=== PATIENT | male | born 1985 | race African-American/Black ===

== ENCOUNTER 2020-12-16 20:55 | Observation (INO) | payer OTHER ==
[2020-12-16] MEDS ORDERED: SODIUM CHLORIDE 0.9% 1,000 ML IV STA ×2 (21:12)
[2020-12-16] MEDS ORDERED: LORazepam 2 MG/ML INJ IV STA (21:13)
[2020-12-16] MEDS ORDERED: KETOROLAC 15 MG/ML 1 ML VIAL IVP STA (21:13)
[2020-12-16 21:36] LABS: Basophils % (A) 1 %; Eosinophils # (A) 0.1 k/uL (0-0.7); Eosinophils % (A) 2 %; HGB 12.9 gm/dL (13.0-17.5); Lymphocytes # (A) 1.5 k/uL (1.0-4.8); Lymphocytes % (A) 19 %; MCH 29.8 pg (25.0-35.0); MCV 87.6 fL (80.0-100.0); Mean Platelet Volume 6.5; Monocytes # (A) 0.7 k/uL (0-1.0); Monocytes % (A) 9 %; Neutrophils # (A) 5.3 k/uL (1.3-7.7); Neutrophils % (A) 68 %; Platelet Count 303 k/uL (150-450); Poikilocytosis Moderate; RBC 4.34 m/uL (4.30-5.90); RDW 14.5 % (11.5-15.5); WBC 7.8 k/uL (3.8-10.6)
[2020-12-16 21:50] LABS: ALT 54 U/L (4-49); AST 56 U/L (17-59); African American GFR (CKD) >90 (>60 ml/min/1.73 sqM); Albumin 4.4 g/dL (3.5-5.0); Alkaline Phosphatase 61 U/L (38-126); Anion Gap 7 mmol/L; Blood Urea Nitrogen 13 mg/dL (9-20); Calcium 9.2 mg/dL (8.4-10.2); Carbon Dioxide 26 mmol/L (22-30); Chloride 103 mmol/L (98-107); Glucose 99 mg/dL (74-99); Magnesium 2.1 mg/dL (1.6-2.3); Non-African American GFR(CKD) >90 (>60 ml/min/1.73 sqM); Potassium 3.9 mmol/L (3.5-5.1); Sodium 136 mmol/L (137-145); Total Bilirubin 0.6 mg/dL (0.2-1.3); Total Protein 6.8 g/dL (6.3-8.2)
[2020-12-16 21:58] LABS: INR 0.9 (<1.2); Partial Thromboplastin Time 23.1 sec (22.0-30.0); Prothrombin Time 10.2 sec (9.0-12.0)
--- NOTE | 2020-12-16 22:16 | XR ---
EXAMINATION TYPE: XR chest 2V DATE OF EXAM: 12/16/2020 COMPARISON: NONE HISTORY: Weakness TECHNIQUE: 2 views FINDINGS: Heart and mediastinum are normal. There is slight increased density at the inferior right p ulmonary hilum that could be some minimal adenopathy or infiltrate. Costophrenic angles are clear. Maximino ny thorax is intact. IMPRESSION: This is probably a small infiltrate or adenopathy at the inferior right pulmonary hilum. Normal heart.
--- NOTE | 2020-12-16 22:58 | ED ---
General Adult HPI - General Chief complaint: Recheck/Abnormal Lab/Rx Stated complaint: weakness Time Seen by Provider: 12/16/20 21:03 Source: EMS Mode of arrival: EMS Limitations: no limitations - History of Present Illness Initial comments: This 35-year-old male presents with a complaint of some lower sternal chest pain. He relates that he initially had this a couple weeks ago and was seen in the emergency department at that time. He had x-rays labs and an EKG and was eventually discharged. He was told that it could be related to anxiety or refl ux. He states that it occurred again today. He is currently residing at [facility]. He is there for alcohol and cocaine abuse. He has been there for approximately one week. He states that he was outside several times today. He had been outside for approximately 45 minutes prior to arrival and states that he started developing some lower sternal chest pain. He also had some lightheadedness some mild upper extremity paresthesias, and rapid breathing. He does have a history of anxiety as well. He denies any known history of cardiac disease. He has asthma but otherwise denies any pulmonary disease. He states that the chest pain is more pressure-like in his midsternal region without radiation. He has never had a stress test or heart catheterization. He denies any history of DVT or PE. - Related Data Home Medications Medication Instructions Recorded Confirmed Acetaminophen [Tylenol Arthritis] 650 mg PO Q4H PRN 12/16/20 12/16/20 Calcium/Magnesium 1 tab PO DIRECTED 12/16/20 12/16/20 Chlorpheniramine Maleate 4 mg PO Q4H PRN 12/16/20 12/16/20 [Chlor-Trimeton] Ibuprofen [Motrin] 600 mg PO Q6H PRN 12/16/20 12/16/20 Multivitamins, Thera [Multivitamin 1 tab PO DAILY 12/16/20 12/16/20 (formulary)] Omeprazole 20 mg PO BID 12/16/20 12/16/20 cloNIDine HCL [Catapres] 0.1 - 0.3 mg PO DAILY PRN 12/16/20 12/16/20 traZODone HCL 50 - 150 mg PO HS 12/16/20 12/16/20 Allergies Allergy/AdvReac Type Severity Reaction Status Date / Time No Known Allergies Allergy Verified 12/16/20 22:20 Review of Systems ROS Statement: Those systems with pertinent positive or pertinent negative responses have been documented in the HPI. ROS Other: All systems not noted in ROS Statement are negative. Past Medical History Past Medical History: Asthma, GERD/Reflux History of Any Multi-Drug Resistant Organisms: None Reported Past Surgical History: No Surgical Hx Reported Past Psychological History: Anxiety Smoking Status: Current every day smoker Past Alcohol Use History: Abuse, Daily, Heavy Past Drug Use History: Cocaine General Exam - General Exam Comments Initial Comments: GENERAL: The patient is well nourished and well hydrated. VITAL SIGNS: Heart rate, blood pressure, respiratory rate reviewed as recorded in nurse's notes. EYES: Pupils are round and reactive. Extraocular movements are intact. No conjunctival / lid redness or swelling. ENT: No external evidence of injury, swelling, or ecchymosis. Airway is patent. Throat is clear. NECK: Nontender. No swelling or evidence of injury. No subcutaneous emphysema. Trachea is midline. No thyroid mass. HEART: Regular rate and rhythm. Good peripheral pulses. LUNGS/CHEST: Breath sounds clear and equal bilaterally. No rales, rhonchi, or wheezes. No ecchymosis, subcutaneous emphysema, or tenderness. ABDOMEN: Abdomen soft without tenderness. No palpable masses or organomegaly. No peritoneal signs. No abdominal wall swelling or ecchymosis. EXTREMITIES: No extremity tenderness. Normal muscle tone and function. No thoracolumbar tenderness. NEUROLOGIC: Sensation is grossly intact. Cranial nerve exam reveals face is symmetrical, tongue is midline, speech is clear. SKIN: No abrasions or ecchymosis is noted. No induration or masses noted. PSYCHIATRIC: Alert and oriented. Appropriate behavior and judgment. Seems slightly anxious. Limitations: no limitations Course Vital Signs 12/16/20 21:00 Temperature 98.3 F Pulse Rate 90 Respiratory 18 Rate Blood Pressure 133/93 O2 Sat by Pulse 99 Oximetry Medical Decision Making - Medical Decision Making The patient was seen and examined. All diagnostics were reviewed. IV is es tablished is placed on the urban and regional planner. The EKG shows a normal sinus rhythm at a rate of 90. There is no acute ST-T wave changes noted. The LA intervals 144, QRS duration is 90, and the QTC intervals 462. The laboratory overall is unremarkable. He also receives some Nitropaste. He receives 1 mg of Ativan IV. He is sleeping and in no distress on recheck. The chest x-ray was read out as having either an infiltrate or adenopathy just superior to the right perihilar region. Overall, it is felt now for that he is having a pneumonia as he has no shortness of breath or cough or fevers. He is instructed that he likely will require a repeat chest x-ray in a couple of weeks to compare and should follow- up with his primary care in this regard. Is not felt as though he needs antibiotic treatment at this time. A covid test will be ordered as well and is currently pending. The patient is requesting admission to the hospital for further workup of his chest pain. It is felt as though this is reasonable to rule out any possibility of acute coronary syndrome. Case is discussed with LAWSON Gillespie and he is agreeable to admission under Dr. Otto. - Lab Data Result diagrams: 12/16/20 21:25 12/16/20 21:25 Lab Results 12/16/20 12/16/20 12/16/20 Range/Units 21:25 21:25 21:25 WBC 7.8 (3.8-10.6) k/uL RBC 4.34 (4.30-5.90) m/uL Hgb 12.9 L (13.0-17.5) gm/dL Hct 38.0 L (39.0-53.0) % MCV 87.6 (80.0-100.0) fL MCH 29.8 (25.0-35.0) pg MCHC 34.0 (31.0-37.0) g/dL RDW 14.5 (11.5-15.5) % Plt Count 303 (150-450) k/uL MPV 6.5 Neutrophils % 68 % Lymphocytes % 19 % Monocytes % 9 % Eosinophils % 2 % Basophils % 1 % Neutrophils # 5.3 (1.3-7.7) k/uL Lymphocytes # 1.5 (1.0-4.8) k/uL Monocytes # 0.7 (0-1.0) k/uL Eosinophils # 0.1 (0-0.7) k/uL Basophils # 0.0 (0-0.2) k/uL Poikilocytosis Moderate PT 10.2 (9.0-12.0) sec INR 0.9 (<1.2) APTT 23.1 (22.0-30.0) sec Sodium 136 L (137-145) mmol/L Potassium 3.9 (3.5-5.1) mmol/L Chloride 103 (98-107) mmol/L Carbon Dioxide 26 (22-30) mmol/L Anion Gap 7 mmol/L BUN 13 (9-20) mg/dL Creatinine 0.88 (0.66-1.25) mg/dL Est GFR (CKD-EPI)AfAm >90 (>60 ml/min/1.73 sqM) Est GFR (CKD-EPI)NonAf >90 (>60 ml/min/1.73 sqM) Glucose 99 (74-99) mg/dL Calcium 9.2 (8.4-10.2) mg/dL Magnesium 2.1 (1.6-2.3) mg/dL Total Bilirubin 0.6 (0.2-1.3) mg/dL AST 56 (17-59) U/L ALT 54 H (4-49) U/L Alkaline Phosphatase 61 (38-126) U/L Troponin I (0.000-0.034) ng/mL Total Protein 6.8 (6.3-8.2) g/dL Albumin 4.4 (3.5-5.0) g/dL 12/16/20 Range/Units 21:25 WBC (3.8-10.6) k/uL RBC (4.30-5.90) m/uL Hgb (13.0-17.5) gm/dL Hct (39.0-53.0) % MCV (80.0-100.0) fL MCH (25.0-35.0) pg MCHC (31.0-37.0) g/dL RDW (11.5-15.5) % Plt Count (150-450) k/uL MPV Neutrophils % % Lymphocytes % % Monocytes % % Eosinophils % % Basophils % % Neutrophils # (1.3-7.7) k/uL Lymphocytes # (1.0-4.8) k/uL Monocytes # (0-1.0) k/uL Eosinophils # (0-0.7) k/uL Basophils # (0-0.2) k/uL Poikilocytosis PT (9.0-12.0) sec INR (<1.2) APTT (22.0-30.0) sec Sodium (137-145) mmol/L Potassium (3.5-5.1) mmol/L Chloride (98-107) mmol/L Carbon Dioxide (22-30) mmol/L Anion Gap mmol/L BUN (9-20) mg/dL Creatinine (0.66-1.25) mg/dL Est GFR (CKD-EPI)AfAm (>60 ml/min/1.73 sqM) Est GFR (CKD-EPI)NonAf (>60 ml/min/1.73 sqM) Glucose (74-99) mg/dL Calcium (8.4-10.2) mg/dL Magnesium (1.6-2.3) mg/dL Total Bilirubin (0.2-1.3) mg/dL AST (17-59) U/L ALT (4-49) U/L Alkaline Phosphatase (38-126) U/L Troponin I <0.012 (0.000-0.034) ng/mL Total Protein (6.3-8.2) g/dL Albumin (3.5-5.0) g/dL Disposition Clinical Impression: Chest pain, Unstable angina, Anxiety, Alcohol abuse, Cocaine abuse Disposition: ADMITTED IP TO THIS HOSP Condition: Fair Is patient prescribed a controlled substance at d/c from ED?: No Referrals: Nonstaff,Physician [Primary Care Provider] - 1-2 days Time of Disposition: 22:57 Decision Date: 12/16/20 Decision Time: 22:57
[2020-12-16] MEDS ORDERED: ASPIRIN 81 MG PO STA (22:59)
[2020-12-16] MEDS ORDERED: NITROGLYCERIN OINT 1 INCH/GM PACKET TOPICAL STA (22:59)
[2020-12-16] MEDS ORDERED: cloNIDine HCL 0.1 MG TAB PO PRN (23:00)
[2020-12-16] MEDS ORDERED: CALCIUM PO SCH (23:00)
[2020-12-16] MEDS ORDERED: MAGNESIUM PO SCH (23:00)
[2020-12-16] MEDS ORDERED: CHLORPHENIRAMINE MALEATE 4 MG PO PRN (23:00)
[2020-12-17] MEDS: NITROGLYCERIN OINT 1 INCH/GM PACKET TOPICAL SCH ×2 (01:17→05:45)
[2020-12-17] MEDS: ACETAMINOPHEN TAB 325 MG TAB PO PRN (04:16)
--- NOTE | 2020-12-17 10:22 | P.CRDCN ---
History of Present Illness Consult date: 12/17/20 Requesting physician: Tae Otto Reason for Consult (text): chest pain Chief complaint: diaphoresis, dizziness, chest pressure History of present illness: This is a pleasant 35-year-old gentleman with a past history of cocaine and alcohol abuse, GERD, and asthma. He is currently at [facility] for treatment. He was apparently outside playing [employer] yesterday when he started sweating and started feeling dizzy and kind of faint so he went inside to sit in the air conditioning and got a glass of water and he began shaking. The nurse was called and he was given Ativan. Shortly after taking the Ativan with water he developed some squeezing in his chest. He has experienced this about a month ago and was seen at another hospital in the emergency department was told that it was anxiety and reflux and was discharged. He is unsure whether he has any family history of CAD. He denies history of hypertension, hyperlipidemia or diabetes. EKG on admission showed sinus mechanism with no evidence of ischemia. Laboratory values showed a hemoglobin of 12.9, sodium 136, BUN 13 and cr eatinine 0.88. Magnesium was normal at 2.1. Troponins have been negative 3. He's been started on aspirin and nitroglycerin ointment. He received IV fluids in the emergency department. Chest x-ray showed probable small infiltrate or adenopathy at the inferior right pulmonary home and outpatient follow-up was recommended. On examination patient is resting comfortably in bed. He denies current complaints however does have some mild left chest wall tenderness to palpation. Denies any shortness of breath, palpitations, denies any further dizziness, diaphoresis or tremor Past Medical History Past Medical History: Asthma, GERD/Reflux History of Any Multi-Drug Resistant Organisms: None Reported Past Surgical History: No Surgical Hx Reported Past Anesthesia/Blood Transfusion Reactions: No Reported Reaction Past Psychological History: Anxiety Smoking Status: Current every day smoker Past Alcohol Use History: Abuse, Daily, Heavy Additional Past Alcohol Use History / Comment(s): on and off drinker. Past Drug Use History: Cocaine Medications and Allergies Home Medications Medication Instructions Recorded Confirmed Type Acetaminophen [Tylenol Arthritis] 650 mg PO Q4H PRN 12/16/20 12/16/20 History Calcium/Magnesium 1 tab PO DIRECTED 12/16/20 12/16/20 History Chlorpheniramine Maleate 4 mg PO Q4H PRN 12/16/20 12/16/20 History [Chlor-Trimeton] Ibuprofen [Motrin] 600 mg PO Q6H PRN 12/16/20 12/16/20 History Multivitamins, Thera [Multivitamin 1 tab PO DAILY 12/16/20 12/16/20 History (formulary)] Omeprazole 20 mg PO BID 12/16/20 12/16/20 History traZODone HCL 50 - 150 mg PO HS 12/16/20 12/16/20 History Atorvastatin [Lipitor] 10 mg PO HS #30 tab 12/17/20 Rx Allergies Allergy/AdvReac Type Severity Reaction Status Date / Time No Known Allergies Allergy Verified 12/16/20 22:20 Physical Exam Vitals: Vital Signs Temp Pulse Pulse Resp BP BP Pulse Ox 12/17/20 02:00 97.6 F 84 16 124/80 100 12/16/20 23:29 97.6 F 81 18 123/75 98 12/16/20 23:17 97.6 F 85 16 128/88 100 12/16/20 21:00 98.3 F 90 18 133/93 99 Intake and Output 12/16/20 12/17/20 12/17/20 22:59 06:59 14:59 Other: # Voids 2 Weight 77.111 kg 77.111 kg PHYSICAL EXAMINATION: This is a 35-year-old gentleman in no apparent distress at the time of my examination. VITAL SIGNS: Blood pressure when 124/80, heart rate 84, respirations 16, temp 97.6F. Patient is 100 % on [place]. HEENT: Head is atraumatic, normocephalic. Pupils are equal, round. Sclerae anicteric. Conjunctivae are clear. Mucous membranes of the mouth are moist. Neck is supple. There is no elevated jugular venous pressure. No carotid bruit is heard. CHEST EXAMINATION: Clear to auscultation bilaterally. No wheezes rales or rhonchi. Respirations even and nonlabored. Left chest wall tenderness with palpation HEART EXAMINATION: Heart regular, positive S1 and S2. No S3. No S4. No clicks, rubs or murmurs. ABDOMEN: Soft, nontender. Bowel sounds are heard. No organomegaly noted. EXTREMITIES: 2+ peripheral pulses with no evidence of peripheral edema and no calf tenderness noted. NEUROLOGIC EXAMINATION: Patient is awake, alert and oriented x3. Results 12/16/20 21:25 12/16/20 21:25 Cardiac Enzymes 12/16/20 12/16/20 12/17/20 Range/Units 21:25 21:25 01:20 AST 56 (17-59) U/L Troponin I <0.012 <0.012 (0.000-0.034) ng/mL 12/17/20 Range/Units 04:17 AST (17-59) U/L Troponin I <0.012 (0.000-0.034) ng/mL Coagulation 12/16/20 Range/Units 21: PT 10.2 (9.0-12.0) sec APTT 23.1 (22.0-30.0) sec CBC 12/16/20 Range/Units 21:25 WBC 7.8 (3.8-10.6) k/uL RBC 4.34 (4.30-5.90) m/uL Hgb 12.9 L (13.0-17.5) gm/dL Hct 38.0 L (39.0-53.0) % Plt Count 303 (150-450) k/uL Comprehensive Metabolic Panel 12/16/20 Range/Units 21:25 Sodium 136 L (137-145) mmol/L Potassium 3.9 (3.5-5.1) mmol/L Chloride 103 (98-107) mmol/L Carbon Dioxide 26 (22-30) mmol/L BUN 13 (9-20) mg/dL Creatinine 0.88 (0.66-1.25) mg/dL Glucose 99 (74-99) mg/dL Calcium 9.2 (8.4-10.2) mg/dL AST 56 (17-59) U/L ALT 54 H (4-49) U/L Alkaline Phosphatase 61 (38-126) U/L Total Protein 6.8 (6.3-8.2) g/dL Albumin 4.4 (3.5-5.0) g/dL Current Medications Generic Name Dose Route Start Last Admin Trade Name Freq PRN Reason Stop Dose Admin Acetaminophen 650 mg 12/16/20 23:00 12/17/20 04:16 Acetaminophen Tab 325 Mg Tab PO 650 mg Q4H PRN Administration Fever and/ or Pain Aspirin 325 mg 12/17/20 09:00 Aspirin 325 Mg Tab PO DAILY [facility] Clonidine 0.2 mg 12/16/20 23:00 Clonidine Hcl 0.1 Mg Tab PO DAILY PRN BP > 160/100 Enoxaparin Sodium 40 mg 12/17/20 09:00 Enoxaparin 40 Mg/0.4 Ml Syringe SQ DAILY [facility] Ibuprofen 600 mg 12/16/20 23:00 Ibuprofen 600 Mg Tab PO Q6H PRN Pain Multivitamins 1 each 12/17/20 09:00 Multivitamins, Thera 1 Each Tab PO DAILY [facility] Nitroglycerin 1 inch 12/17/20 00:00 12/17/20 05:45 Nitroglycerin Oint 1 Inch/Gm Packet TOPICAL Not Given Q6HR [facility] Pantoprazole Sodium 40 mg 12/17/20 07:30 Pantoprazole 40 Mg Tablet PO AC-BID [facility] Trazodone HCl 100 mg 12/17/20 21:00 Trazodone Hcl 100 Mg Tab PO HS [facility] Intake and Output 12/16/20 12/17/20 12/17/20 22:59 06:59 14:59 Other: # Voids 2 Weight 77.111 kg 77.111 kg 12/16/20 21:25 12/16/20 21:25 EKG Interpretations (text) Sinus rhythm Assessment and Plan Assessment: #1 symptoms of diaphoresis, dizziness, tremor and squeezing chest discomfort, an acute coronary event has been ruled out, EKG showed no evidence of ischemia and troponins have been negative 3 #2 alcohol abuse, currently in treatment #3 cocaine abuse, currently in treatment #4 smoking #5 asthma #6 GERD Plan: From cardiology's perspective we will obtain a 2-D echo with Doppler study to assess cardiac structure and function. We will discontinue nitroglycerin paste. We will plan to keep the patient and obtain a stress echo on Saturday. The above dictated assessment and findings were discussed with signing physician. The impression and plan of care have been directed as dictated. Keena Strong, Nurse Practitioner, acting as scribe for signing physician.
[2020-12-17] MEDS: PANTOPRAZOLE 40 MG TABLET PO SCH ×2 (10:43→17:36)
[2020-12-17] MEDS: ASPIRIN 325 MG TAB PO SCH (10:43)
[2020-12-17] MEDS: MULTIVITAMINS, THERA 1 EACH TAB PO SCH (10:43)
[2020-12-17] MEDS: ENOXAPARIN 40 MG/0.4 ML SYRINGE SQ SCH (10:43)
[2020-12-17 10:54] LABS: Chol/HDL Ratio 4.63; LDL Cholesterol,Calculated 138.6 mg/dL (0.0-131.0); VLDL Calculation 35.4 mg/dL (5.00-40.00)
--- NOTE | 2020-12-17 11:00 | ECHOF ---
Referral Reason:chest pain MEASUREMENTS -------- HEIGHT: 167.6 cm WEIGHT: 77.1 kg BP: 124/80 RVIDd: 3.1 cm (< 3.3) IVSd: 1.2 cm (0.6 - 1.1) LVIDd: 3.9 cm (3.9 - 5.3) LVPWd: 1.5 cm (0.6 - 1.1) IVSs: 1.6 cm LVIDs: 3.0 cm LVPWs: 1.8 cm LAESV Index (A-L): 24.60 ml/m Ao Diam: 3.5 cm (2.0 - 3.7) AV Cusp: 1.6 cm (1.5 - 2.6) MV EXCURSION: 20.378 mm (> 18.000) MV EF SLOPE: 115 mm/s (70 - 150) EPSS: 0.7 cm MV E Meño: 0.54 m/s MV DecT: 139 ms MV A Meño: 0.44 m/s MV E/A Ratio: 1.21 RAP: 5.00 mmHg RVSP: 19.17 mmHg FINDINGS -------- Sinus rhythm. This was a technically adequate study. The left ventricular size is normal. There is mild concentric left ventricular hypertrophy. Overa ll left ventricular systolic function is mildly impaired with, an EF between 45 - 50 %. The right ventricle is normal in size. Normal LA size by volume 22+/-6 ml/m2. Interatrial and interventricular septum intact. The aortic valve is trileaflet and appears structurally normal. There is no evidence of aortic regu rgitation. There is no evidence of aortic stenosis. There is trace mitral regurgitation. Mild tricuspid regurgitation present. There is no evidence of pulmonary hypertension. The right v entricular systolic pressure, as measured by Doppler, is 19.17mmHg. There is no pulmonic regurgitation present. The aortic root size is normal. IVC Not well visulized. There is no pericardial effusion. CONCLUSIONS -------- 1. The left ventricular size is normal. 2. There is mild concentric left ventricular hypertrophy. 3. Overall left ventricular systolic function is mildly impaired with, an EF between 45 - 50 %. 4. There is trace mitral regurgitation. 5. Mild tricuspid regurgitation present. BOILER OR ENGINE OPERATOR: Jenn Perez, [facility]
[2020-12-17] MEDS ORDERED: RX INFO: IV CONTRAST WAS GIVEN 1 EACH MISC MISCELLANE PRN (11:14)
--- NOTE | 2020-12-17 12:01 | P.CNPUL ---
History of Present Illness Consult date: 12/17/20 Requesting physician: Tae Otto Reason for consult: chest pain, abnormal CXR/CT Chief complaint: Abnormal chest x-ray and sharp chest pain. History of present illness: Pulmonary consult dated 12/17/2020. 35-year-old black male, who presents to the emergency department, for chest pain. The pain is primarily left-sided and sharp in nature. He states it occurs mostly with deep breathing. This been going on for at least a couple years and seems to be getting worse in the last couple weeks. He is currently being evaluated by the primary service for this pain. It doesn't sound pleuritic in nature in that it has been going on for such a long time. He currently resides at [facility]. He is here for alcohol and cocaine abuse. He denies a prior history of lung disease. Apparently there is a vague history of chronic bronchial asthma although he doesn't take anything for asthma. He also apparently has history of gastroesophageal reflux disease. He does smoke on a daily basis. He does or at least has a prior history of alcohol abuse, and cocaine abuse. There is no family history of any lung issues. The patient had a chest x-ray which suggested the possibility of right paratracheal and right hilar mass. We'll go ahead and order a computed tomography scan of the chest with contrast. Review of Systems REVIEW OF SYSTEMS: CONSTITUTIONAL: [Negative.] NEUROLOGIC: [ Negative.] HEENT: [ Negative.] CARDIAC: Sharp left-sided chest pain, worse on deep inspiration. PULMONARY: [Negative.] GI: [Negative.] : [Negative.] RHEUMATOLOGIC: [ Negative.] IMMUNOLOGIC: [ Negative.] ENDOCRINE: [Negative. ] DERMATOLOGIC: [Negative.] Past Medical History Past Medical History: Asthma, GERD/Reflux History of Any Multi-Drug Resistant Organisms: None Reported Past Surgical History: No Surgical Hx Reported Past Anesthesia/Blood Transfusion Reactions: No Reported Reaction Past Psychological History: Anxiety Smoking Status: Current every day smoker Past Alcohol Use History: Abuse, Daily, Heavy Additional Past Alcohol Use History / Comment(s): on and off drinker. Past Drug Use History: Cocaine Medications and Allergies Home Medications Medication Instructions Recorded Confirmed Type Acetaminophen [Tylenol Arthritis] 650 mg PO Q4H PRN 12/16/20 12/16/20 History Calcium/Magnesium 1 tab PO DIRECTED 12/16/20 12/16/20 History Chlorpheniramine Maleate 4 mg PO Q4H PRN 12/16/20 12/16/20 History [Chlor-Trimeton] Ibuprofen [Motrin] 600 mg PO Q6H PRN 12/16/20 12/16/20 History Multivitamins, Thera [Multivitamin 1 tab PO DAILY 12/16/20 12/16/20 History (formulary)] Omeprazole 20 mg PO BID 12/16/20 12/16/20 History cloNIDine HCL [Catapres] 0.1 - 0.3 mg PO DAILY PRN 12/16/20 12/16/20 History traZODone HCL 50 - 150 mg PO HS 12/16/20 12/16/20 History Allergies Allergy/AdvReac Type Severity Reaction Status Date / Time No Known Allergies Allergy Verified 12/16/20 22:20 Physical Exam Osteopathic Statement: *. No significant issues noted on an osteopathic structural exam other than those noted in the History and Physical/Consult. Vitals: Vital Signs Temp Pulse Pulse Resp BP BP Pulse Ox 12/17/20 08:00 16 12/17/20 07:00 97.4 F L 73 16 99/63 100 12/17/20 02:00 97.6 F 84 16 124/80 100 12/16/20 23:29 97.6 F 81 18 123/75 98 12/16/20 23:17 97.6 F 85 16 128/88 100 12/16/20 21:00 98.3 F 90 18 133/93 99 Intake and Output 12/16/20 12/17/20 12/17/20 22:59 06:59 14:59 Other: # Voids 2 Weight 77.111 kg 77.111 kg No acute distress, oriented 3. Room air saturation 100%. HEENT examination is grossly unremarkable. Mucous membranes are moist. No oral lesions. Neck supple. Full range of motion. No adenopathy thyromegaly or neck vein distention. Cardiovascular examination reveals regular rhythm rate. S1-S2 normal. No S3 or S4. No discernible murmur noted. Heart rate 73 bpm. Lungs reveal clear breath sounds. Breath sounds are equal bilaterally. No ad ventitious lung sounds including wheezes rhonchi or crackles. Abdomen soft bowel sounds are heard. No masses or tenderness. Extremities are intact. No cyanosis clubbing or edema. Skin is without rash or lesion. Neurologic examination is brief but nonfocal. Results - Laboratory Findings CBC and BMP: 12/16/20 21:25 12/16/20 21: PT/INR, D-dimer PT 10.2 sec (9.0-12.0) 12/16/20 21: INR 0.9 (<1.2) 12/16/20 21:25 Abnormal lab findings: Abnormal Labs 12/16/20 12/16/20 12/17/20 21:25 21:25 04:17 Hgb 12.9 L Hct 38.0 L Sodium 136 L ALT 54 H Triglycerides 177.0 H Cholesterol 222 H LDL Cholesterol, Calc 138.6 H - Diagnostic Findings Chest x-ray: image reviewed Assessment and Plan Assessment: Questionable right hilar mass, to be evaluated by CAT scan with contrast. History of chronic and ongoing tobacco use. History of cocaine abuse. Gastroesophageal reflux disease. History of chronic alcohol abuse. Plan: Plan dated 12/17/2020. Currently, the patient's blood work all looks pretty normal. He is mildly anemic with hemoglobin is 12.9 and hematocrit 38.0. PT, INR, and PTT, all normal. Sodium 136. The rest of his chemistries are pretty normal. His cholesterol is 222. Coronavirus testing is negative. Chest x-rays reviewed. There may be a right peritracheal or perihilar mass on the right side. A computed tomography scan of the chest was ordered. Additional recommendations and suggestions are forthcoming. If this abnormality is confirmed on computed tomography scan of the chest, the workup for this abnormality can't be done as an outpatient. Time with Patient: Greater than 30
--- NOTE | 2020-12-17 12:46 | P.DS ---
Providers Date of admission: 12/16/20 23:04 Attending physician: Tae Otto Consults: 12/16/20 23:02 Consult Physician Urgent Consulting Provider: Bella Torrez Consult Reason/Comments: cp Do you want consulting provider notified?: Yes 12/17/20 08:34 Consult Physician Urgent Consulting Provider: Oral Macedo Consult Reason/Comments: cp with small infiltrate or adenopathy of the right pulmonary hilum Do you want consulting provider notified?: Yes Primary care physician: Physician Nonstaff Hospital Course: As mentioned in HPI Patient Condition at Discharge: Fair Plan - Discharge Summary Discharge Rx Participant: Yes New Discharge Prescriptions: New Atorvastatin [Lipitor] 10 mg PO HS #30 tab Continue traZODone HCL 50 - 150 mg PO HS Chlorpheniramine Maleate [Chlor-Trimeton] 4 mg PO Q4H PRN PRN Reason: Allergy Symptoms Omeprazole 20 mg PO BID Multivitamins, Thera [Multivitamin (formulary)] 1 tab PO DAILY Ibuprofen [Motrin] 600 mg PO Q6H PRN PRN Reason: Pain Calcium/Magnesium 1 tab PO DIRECTED Acetaminophen [Tylenol Arthritis] 650 mg PO Q4H PRN PRN Reason: Fever And/ Or Pain Discontinued cloNIDine HCL [Catapres] 0.1 - 0.3 mg PO DAILY PRN PRN Reason: BP > 160/100 Discharge Medication List Acetaminophen [Tylenol Arthritis] 650 mg PO Q4H PRN 12/16/20 [History] Calcium/Magnesium 1 tab PO DIRECTED 12/16/20 [History] Chlorpheniramine Maleate [Chlor-Trimeton] 4 mg PO Q4H PRN 12/16/20 [History] Ibuprofen [Motrin] 600 mg PO Q6H PRN 12/16/20 [History] Multivitamins, Thera [Multivitamin (formulary)] 1 tab PO DAILY 12/16/20 [History] Omeprazole 20 mg PO BID 12/16/20 [History] traZODone HCL 50 - 150 mg PO HS 12/16/20 [History] Atorvastatin [Lipitor] 10 mg PO HS #30 tab 12/17/20 [Rx] Follow up Appointment(s)/Referral(s): Oral Macedo DO [Doctor of Osteopathic Medicine] - 1 Week Nonstaff,Physician [Primary Care Provider] - 3 Days
--- NOTE | 2020-12-17 12:46 | P.HPIM ---
History of Present Illness Patient is a 35-year-old the pleasant male came from substance abuse rehabilitation facility with complaints of left-sided and retrosternal chest pain increases with the deep breathing last for a few minutes no associated diaphoresis no shortness of breath lightheadedness associated with that patient denied any nausea patient chest pain is reproducible on the left side of the chest patient had EKG which showed sinus rhythm troponins are not elevated patient is a chest x-ray which showed a hilar mass for which pulmonology valid the patient's CT of the chest is being updated rule out PE as well as the CT of the chest there is no pneumonia on the x-ray CT of the chest will help is better characterize the mass if it turns out to be a mass further workup will be done as an outpatient. 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 Review of Systems REVIEW OF SYSTEMS: CONSTITUTIONAL: No fever, no malaise, no fatigue. HEENT: No recent visual problems or hearing problems. Denied any sore throat. CARDIOVASCULAR: No orthopnea, PND, no palpitations, no syncope. PULMONARY: No shortness of breath, no cough, no hemoptysis. GASTROINTESTINAL: No diarrhea, no nausea, no vomiting, no abdominal pain. NEUROLOGICAL: No headaches, no weakness, no numbness. HEMATOLOGICAL: Denies any bleeding or petechiae. GENITOURINARY: Denies any burning micturition, frequency, or urgency. MUSCULOSKELETAL/RHEUMATOLOGICAL: Denies any joint pain, swelling, or any muscle pain. ENDOCRINE: Denies any polyuria or polydipsia. The rest of the 14-point review of systems is negative. Past Medical History Past Medical History: Asthma, GERD/Reflux History of Any Multi-Drug Resistant Organisms: None Reported Past Surgical History: No Surgical Hx Reported Past Anesthesia/Blood Transfusion Reactions: No Reported Reaction Past Psychological History: Anxiety Smoking Status: Current every day smoker Past Alcohol Use History: Abuse, Daily, Heavy Additional Past Alcohol Use History / Comment(s): on and off drinker. Past Drug Use History: Cocaine Medications and Allergies Home Medications Medication Instructions Recorded Confirmed Type Acetaminophen [Tylenol Arthritis] 650 mg PO Q4H PRN 12/16/20 12/16/20 History Calcium/Magnesium 1 tab PO DIRECTED 12/16/20 12/16/20 History Chlorpheniramine Maleate 4 mg PO Q4H PRN 12/16/20 12/16/20 History [Chlor-Trimeton] Ibuprofen [Motrin] 600 mg PO Q6H PRN 12/16/20 12/16/20 History Multivitamins, Thera [Multivitamin 1 tab PO DAILY 12/16/20 12/16/20 History (formulary)] Omeprazole 20 mg PO BID 12/16/20 12/16/20 History traZODone HCL 50 - 150 mg PO HS 12/16/20 12/16/20 History Allergies Allergy/AdvReac Type Severity Reaction Status Date / Time No Known Allergies Allergy Verified 12/16/20 22:20 Physical Exam Vitals: Vital Signs Temp Pulse Pulse Resp BP BP Pulse Ox 12/17/20 08:00 16 12/17/20 07:00 97.4 F L 73 16 99/63 100 12/17/20 02:00 97.6 F 84 16 124/80 100 12/16/20 23:29 97.6 F 81 18 123/75 98 12/16/20 23:17 97.6 F 85 16 128/88 100 12/16/20 21:00 98.3 F 90 18 133/93 99 Intake and Output 12/16/20 12/17/20 12/17/20 22:59 06:59 14:59 Other: # Voids 2 Weight 77.111 kg 77.111 kg PHYSICAL EXAMINATION: GENERAL: The patient is alert and oriented x3, not in any acute distress. Well developed, well nourished. HEENT: Pupils are round and equally reacting to light. EOMI. No scleral icterus. No conjunctival pallor. Normocephalic, atraumatic. No pharyngeal erythema. No thyromegaly. CARDIOVASCULAR: S1 and S2 present. No murmurs, rubs, or gallops. Reproducible chest pain PULMONARY: Chest is clear to auscultation, no wheezing or crackles. ABDOMEN: Soft, nontender, nondistended, normoactive bowel sounds. No palpable organomegaly. MUSCULOSKELETAL: No joint swelling or deformity. EXTREMITIES: No cyanosis, clubbing, or pedal edema. NEUROLOGICAL: Gross neurological examination did not reveal any focal deficits. SKIN: No rashes. Results CBC & Chem 7: 12/16/20 21:25 12/16/20 21:25 Labs: Abnormal Lab Results - Last 24 Hours (Table) 12/16/20 12/16/20 12/17/20 Range/Units 21:25 21:25 04:17 Hgb 12.9 L (13.0-17.5) gm/dL Hct 38.0 L (39.0-53.0) % Sodium 136 L (137-145) mmol/L ALT 54 H (4-49) U/L Triglycerides 177.0 H (0.0-149.0) mg/dL Cholesterol 222 H (0-200) mg/dL LDL Cholesterol, Calc 138.6 H (0.0-131.0) mg/dL Thrombosis Risk Factor Assmnt - Choose All That Apply Any of the Below Risk Factors Present?: Yes Each Factor Represents 1 point: Obesity (BMI >25) Thrombosis Risk Factor Assessment Total Risk Factor Score: 1 Thrombosis Risk Factor Assessment Level: Low Risk Assessment and Plan Plan: -Chest pain rule out acute coronary syndromes patient had an echocardiogram which showed EF around 45-50% no wall motion abnormalities. Patient will be a valid by cardiology if cleared by cardiology patient will be discharged today decision regarding inpatient versus outpatient stress test as per cardiology for chest pain appears to be musculoskeletal patient is already on Motrin which she'll continue patient is also on Prilosec as an outpatient which I will continue -Alcohol abuse and cocaine abuse currently inpatient drug rehabilitation program -Nicotine abuse -Asthma without any acute exacerbation -Incidental finding of hilar prominence for which patient is undergoing a computed tomography scan and was evaluated by pulmonology further workup can be done as an outpatient we'll also rule out pulmonary embolism -Hyperlipidemia data counseling will be provided patient will be started on low- dose of statin
--- NOTE | 2020-12-17 13:40 | CT ---
EXAMINATION TYPE: CT chest w con DATE OF EXAM: 12/17/2020 COMPARISON: Chest x-ray from yesterday. HISTORY: Right Hilar Mass CT DLP: 502 mGycm. Automated Exposure Control for Dose Reduction was Utilized. TECHNIQUE: CT scan of the thorax is performed following with IV Contrast, patient injected with 100 ml mL of Isovue 300. FINDINGS: LUNGS: Tiny right pleural effusion. Patchy anterior right upper lung groundglass opacities and reticu lation. Tiny amount of fluid in the fissures bilaterally. Mild bibasilar linear scarring and/or atele ctasis. No pneumothorax seen bilaterally. MEDIASTINUM: There are enlarged bilateral hilar lymph nodes more prominent in the right hilum versus left. Borderline enlarged subcarinal and right tracheobronchial lymph nodes. Prominent but subcenti meter prevascular and AP window lymph nodes. No cardiomegaly or pericardial effusion is seen. 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 4 vessel origin aortic arch. OTHER: Focal moderate suspicious thickening of the distal esophagus reference axial image 46.. Correl ate clinically for possible distal esophagitis. IMPRESSION: 1. Patchy right upper lung groundglass opacities and reticulation anteriorly along with tiny right pl eural effusion and right greater than left hilar adenopathy. Suspect acute infectious process, correl ate clinically. Consider follow-up CT study to reassess right greater than left hilar adenopathy afte r treatment to exclude other etiologies. Other findings as noted above.
[2020-12-17] MEDS ORDERED: NICOTINE 7MG/24HR PATCH TRANSDERM SCH (15:00)
[2020-12-17] MEDS: NICOTINE 14MG/24HR PATCH TRANSDERM SCH (17:36)
[2020-12-17] MEDS: IBUPROFEN 600 MG TAB PO PRN (20:37)
[2020-12-17] MEDS: traZODone HCL 100 MG TAB PO SCH (20:38)
[2020-12-18] MEDS: ALPRAZolam 0.25 MG TAB PO PRN ×2 (01:14→17:35)
[2020-12-18] MEDS: ENOXAPARIN 40 MG/0.4 ML SYRINGE SQ SCH (08:22)
[2020-12-18] MEDS: PANTOPRAZOLE 40 MG TABLET PO SCH ×2 (08:22→17:26)
[2020-12-18] MEDS: MULTIVITAMINS, THERA 1 EACH TAB PO SCH (08:22)
[2020-12-18] MEDS: ASPIRIN 325 MG TAB PO SCH (08:22)
[2020-12-18] MEDS: NICOTINE 14MG/24HR PATCH TRANSDERM SCH (08:22)
--- NOTE | 2020-12-18 12:29 | PN ---
PROGRESS NOTE This is a 35-year-old gentleman who is going through alcohol and drug rehab at [facility] and was admitted to hospital with chest pain yesterday and had mild LV dysfunction on the echocardiogram. We kept him in to get a stress test on tomorrow. This morning he is doing well and is free of symptoms. On exam, comfortable at rest. Heart rate is 82 beats per minute. Blood pressure is respiratory is 18. Chest exam reveals good air entry bilaterally. Heart exam reveals first and second heart sounds. No gallop. No murmur. Abdomen is soft. Exam of extremities did not reveal any edema. Peripheral pulses are felt. An echocardiogram showed an ejection fraction of 45-[address] scan of the chest showed some patchy ground-glass opacities and pulmonary is on the case. ASSESSMENT: Precordial chest pain. Myocardial infarction ruled out. PLAN: Patient will undergo a stress echo tomorrow. If this is negative, he will be discharged home. If this is abnormal, we will consider further evaluation. MMODL / IJN: [id number] /
[2020-12-18] MEDS: IBUPROFEN 600 MG TAB PO PRN (12:34)
[2020-12-18] MEDS: AMOXIC-POT CLAV 875-125MG 1 EACH TAB PO SCH ×2 (13:13→21:50)
--- NOTE | 2020-12-18 13:28 | P.PN ---
Subjective Progress Note Date: 12/18/20 Principal diagnosis: Abnormal chest x-ray and CAT scan. Pulmonary consult dated 12/17/2020. 35-year-old black male, who presents to the emergency department, for chest pain. The pain is primarily left-sided and sharp in nature. He states it occurs mostly with deep breathing. This been going on for at least a couple years and seems to be getting worse in the last couple weeks. He is currently being evaluated by the primary service for this pain. It doesn't sound pleurit ic in nature in that it has been going on for such a long time. He currently resides at [facility]. He is here for alcohol and cocaine abuse. He denies a prior history of lung disease. Apparently there is a vague history of chronic bronchial asthma although he doesn't take anything for asthma. He also apparently has history of gastroesophageal reflux disease. He does smoke on a daily basis. He does or at least has a prior history of alcohol abuse, and cocaine abuse. There is no family history of any lung issues. The patient had a chest x-ray which suggested the possibility of right paratracheal and right hilar mass. We'll go ahead and order a computed brandy ography scan of the chest with contrast. Progress note dated 12/18/2020. The patient was seen yesterday in consultation for chest pain. The chest x-ray suggested a possible right perihilar abnormality. Computed tomography scan did show evidence of diffuse thoracic adenopathy, and a very minimal infiltrate in the right upper lobe. The patient was placed on oral antibiotic. The patient should follow with me post discharge. The patient will need a follow-up x-ray and/or scan, and should be evaluated for possible sarcoidosis. The lymph nodes could be reactive in nature, and a repeat computed tomography scan 6 or 8 weeks after the initial scan, would be beneficial. Clinically he is doing well without major complaints at this time. He was at the [facility], for alcohol and cocaine abuse. Objective - Vital Signs Vital signs: Vital Signs Temp 98.4 F 12/18/20 07:00 Pulse 82 12/18/20 07:00 Resp 16 12/18/20 08:00 BP 115/61 12/18/20 07:00 Pulse Ox 98 12/18/20 07:00 Intake & Output 05/12/18/20 12/18/20 18:59 06:59 18:59 Intake Total 200 450 400 Balance 200 450 400 Intake: Oral 200 450 400 Other: # Voids 2 3 - Exam No acute distress, oriented 3. Room air saturation 98%. HEENT examination is grossly unremarkable. Neck supple. Full range of motion. No adenopathy thyromegaly or neck vein distention. Cardiovascular examination reveals regular rhythm rate. S1-S2 normal. No S3 or S4. No discernible murmur noted. Heart rate 82 bpm. Lungs reveal clear breath sounds. Breath sounds are equal bilaterally. No adventitious lung sounds including wheezes rhonchi or crackles. Abdomen soft bowel sounds are heard. No masses or tenderness. Extremities are intact. No cyanosis clubbing or edema. Skin is without rash or lesion. Neurologic examination is brief but nonfocal. - Labs CBC & Chem 7: 12/16/20 21:25 12/16/20 21:25 Assessment and Plan Assessment: Questionable right hilar mass, to be evaluated by CAT scan with contrast. Computed tomography scan showed diffuse thoracic adenopathy, likely reactive, and a minimal infiltrate right upper lobe. History of chronic and ongoing tobacco use. History of cocaine abuse. Gastroesophageal reflux disease. History of chronic alcohol abuse. Plan: Plan dated 12/17/2020. Currently, the patient's blood work all looks pretty normal. He is mildly anemic with hemoglobin is 12.9 and hematocrit 38.0. PT, INR, and PTT, all normal. Sodium 136. The rest of his chemistries are pretty normal. His cholesterol is 222. Coronavirus testing is negative. Chest x-rays reviewed. There may be a right peritracheal or perihilar mass on the right side. A computed tomography scan of the chest was ordered. Additional recommendations and suggestions are forthcoming. If this abnormality is confirmed on computed tomography scan of the chest, the workup for this abnormality can't be done as an outpatient. Plan dated 12/18/2020. The patient's clinically doing well. He is not having any symptoms of pneumonia. The chest pain that he was evaluated for is improved. Coronavirus testing was negative. The patient will follow with me post discharge. Time with Patient: Less than 30
--- NOTE | 2020-12-18 17:21 | P.PN ---
Subjective Patient is a 35-year-old the pleasant male came from substance abuse rehabilitation facility with complaints of left-sided and retrosternal chest pa in increases with the deep breathing last for a few minutes no associated diaphoresis no shortness of breath lightheadedness associated with that patient denied any nausea patient chest pain is reproducible on the left side of the chest patient had EKG which showed sinus rhythm troponins are not elevated patient is a chest x-ray which showed a hilar mass for which pulmonology valid the patient's CT of the chest is being updated rule out PE as well as the CT of the chest there is no pneumonia on the x-ray CT of the chest will help is better characterize the mass if it turns out to be a mass further workup will be done as an outpatient. 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 12/18/2020 Patient is still having chest pain last night. Patient will undergo stress us tomorrow computed tomography scan of the chest showed reactive for now the although there is no evidence of pneumonia. Constitutional: Denied any fatigue denied any fever. Cardio vascular: As mentioned in the interval history Gastrointestinal denied any nausea vomiting Pulmonary: Denied any shortness of breath cough Neurologic denied any new focal deficits All inpatient medications were reviewed and appropriate changes in these medications as dictated in the interval history and assessment and plan. Objective - Vital Signs Vital signs: Vital Signs Temp 98.0 F 12/18/20 14:22 Pulse 100 12/18/20 14:22 Resp 16 12/18/20 14:22 BP 125/77 12/18/20 14:22 Pulse Ox 100 12/18/20 14:22 Intake & Output 12/17/20 12/18/20 12/18/20 18:59 06:59 18:59 Intake Total 200 450 400 Balance 200 450 400 Intake: Oral 200 450 400 Other: # Voids 2 3 2 - Exam PHYSICAL EXAMINATION: GENERAL: The patient is alert and oriented x3, not in any acute distress. Well developed, well nourished. HEENT: Pupils are round and equally reacting to light. EOMI. No scleral icterus. No conjunctival pallor. Normocephalic, atraumatic. No pharyngeal erythema. No thyromegaly. CARDIOVASCULAR: S1 and S2 present. No murmurs, rubs, or gallops. PULMONARY: Chest is clear to auscultation, no wheezing or crackles. ABDOMEN: Soft, nontender, nondistended, normoactive bowel sounds. No palpable organomegaly. MUSCULOSKELETAL: No joint swelling or deformity. EXTREMITIES: No cyanosis, clubbing, or pedal edema. NEUROLOGICAL: Gross neurological examination did not reveal any focal deficits. SKIN: No rashes. - Labs CBC & Chem 7: 12/16/20 21:25 12/16/20 21:25 Assessment and Plan Plan: -Chest pain rule out acute coronary syndromes patient had an echocardiogram which showed EF around 45-50% no wall motion abnormalities. Patient chest pain clinically appears to be musculoskeletal. Cardiology is according stress test tomorrow -Alcohol abuse and cocaine abuse currently inpatient drug rehabilitation program -Nicotine abuse -Asthma without any acute exacerbation -Incidental finding of hilar prominence , computed tomography scan showed reactive lymphadenopathy without any evidence of pneumonia -Hyperlipidemia patient was started on low-dose of statin dietary counseling was provided
[2020-12-18] MEDS: ACETAMINOPHEN TAB 325 MG TAB PO PRN (19:43)
[2020-12-18] MEDS: traZODone HCL 100 MG TAB PO SCH (21:50)
[2020-12-18 22:22] VITALS: RESP 18
[2020-12-19] MEDS: AMOXIC-POT CLAV 875-125MG 1 EACH TAB PO SCH (10:13)
[2020-12-19] MEDS: MULTIVITAMINS, THERA 1 EACH TAB PO SCH (10:13)
[2020-12-19] MEDS: PANTOPRAZOLE 40 MG TABLET PO SCH (10:13)
[2020-12-19] MEDS: ASPIRIN 325 MG TAB PO SCH (10:13)
[2020-12-19] MEDS: NICOTINE 14MG/24HR PATCH TRANSDERM SCH (10:14)
[2020-12-19] MEDS: ENOXAPARIN 40 MG/0.4 ML SYRINGE SQ SCH (10:14)
[2020-12-19] MEDS: IBUPROFEN 600 MG TAB PO PRN (10:55)
--- NOTE | 2020-12-19 11:32 | P.PN ---
Subjective This is a pleasant 35-year-old gentleman with a past history of cocaine and alcohol abuse, GERD, and asthma. He is currently at [facility] for treatment. He was apparently outside playing [employer] yesterday when he started sweating and started feeling dizzy and kind of faint so he went inside to sit in the air conditioning and got a glass of water and he began shaking. He has experienced this about a month ago and was seen at another hospital in the emergency department was told that it was anxiety and reflux and was discharged. He is unsure whether he has any family history of CAD. He denies history of hypertension, hyperlipidemia or diabetes. EKG on admission showed sinus mechanism with no evidence of ischemia. Laboratory values showed a hemoglobin of 12.9, sodium 136, BUN 13 and creatinine 0.88. Magnesium was normal at 2.1. Troponins have been negative 3. He's been started on aspirin and nitroglycerin ointment. He received IV fluids in the emergency department. Chest x-ray showed probable small infiltrate or adenopathy at the inferior right pulmonary home and outpatient follow-up was recommended. Echocardiogram on 12/17/20left ventricular systolic function is mildly impaired with EF between 45-50%, trace mitral regurgitation, mild tricuspid regurgitation 12/19/2020: Patient seen and examined at bedside, walking in the halls no apparent distress. He denies chest pain, shortness of breath, palpitations, dizziness, diaphoresis, nausea, lightheadedness, syncope. Blood pressure 112/74, heart rate 84, afebrile, maintaining oxygen saturations 90% on room air. Telemetry reviewed patient sinus mechanism heart rate 80s-100. GENERAL: Well-appearing, well-nourished and in no acute distress. NECK: Supple without JVD or thyromegaly. LUNGS: Breath sounds clear to auscultation bilaterally. Respiration equal and unlabored. No wheezes, rales or rhonchi. HEART: Regular rate and rhythm without murmurs, rubs or gallops. S1 and S2 heard. EXTREMITIES: Normal range of motion, no edema. No clubbing or cyanosis. Peripheral pulses intact. ASSESSMENT Chest pain, atypical, acute coronary event has been ruled out. EKG showed no evidence of ischemia and troponins were negative 3 Alcohol abuse, currently in treatment Cocaine abuse, currently in treatment Nicotine Dependence Asthma GERD PLAN An acute coronary event has been ruled out with no EKG evidence of ischemia and negative cardiac enzymes. 2D echocardiogram and doppler study obtained, with results as above Perform stress echo test to assess for stress induced cardiac ischemia. Smoking cessation discussed and highly recommended. Stress Echo test negative, he can be discharged from cardiology perspective. If this is abnormal we will consider further evaluation. Follow up with Dr. Montero outpatient Thank you kindly for this consultation. Nurse Practitioner note has been reviewed, I agree with a documented findings and plan of care. Patient was seen and examined. Objective - Vital Signs Vital signs: Vital Signs Temp 97.9 F 12/19/20 06:44 Pulse 84 12/19/20 06:44 Resp 18 12/19/20 06:44 BP 112/74 12/19/20 06:44 Pulse Ox 98 12/19/20 06:44 Intake & Output 12/18/20 12/19/20 12/19/20 18:59 06:59 18:59 Intake Total 700 Balance 700 Weight 77.11 kg Intake: Oral 700 Other: # Voids 2 1 - Labs CBC & Chem 7: 12/16/20 21:25 12/16/20 21:25
[2020-12-19] MEDS: ACETAMINOPHEN TAB 325 MG TAB PO PRN (11:51)
--- NOTE | 2020-12-19 12:36 | P.STRESS ---
- Stress Test Note Stress Test Results/Findings: Exam Performed: stress echo exercise Exam Date: 12/19/20 Reason for Exam: CHEST PAIN Height: 5 ft 6 in Weight: 77.11 kg Protocol: JOSE Stage: 4 Duration of Exercise: 10:19 Resting Heart Rate: 90 Resting Blood Pressure: 104/68 Maximum Achieved Heart Rate: 176 Maximum Achieved Blood Pressure: 158/58 85% PMHR: 156 100% PMHR: 184 METS: 11.9 Technologist Comment: Stress Test Results/Findings: Baseline heart rate 90 beats a minute, Baseline blood pressure 104/68 mmHg patient is complaining of chest discomfort Twelve-lead EKG showed normal sinus rhythm with normal ST segments Patient exercised on a Jose protocol for an minutes 19 seconds Achieving a peak heart rate of 176 beats a minute Normal blood pressure response There was no ECG and some ischemia Baseline 2-D echo showed normal LV systolic function without segmental wall motion normalities At peak exercise, there was excellent augmentation of overall LV contractility, without developing any wall motion normalities At recovery region global LV systolic function remain normal Impression Normal stress echo Good exercise capacity No ECG or echocardiographic evidence for ischemia
[2020-12-19 13:59] VITALS: BP 116/68; PULSE 96; TEMP 98.4
[2020-12-19] MEDS: ALPRAZolam 0.25 MG TAB PO PRN (15:01)
--- NOTE | 2020-12-19 15:01 | P.PN ---
Subjective Progress Note Date: 12/19/20 35-year-old black male, who presents to the emergency department, for chest pain. The pain is primarily left-sided and sharp in nature. He states it occurs mostly with deep breathing. This been going on for at least a couple years and seems to be getting worse in the last couple weeks. He is currently being evaluated by the primary service for this pain. It doesn't sound pleuritic in nature in that it has been going on for such a long time. He currently resides at [facility]. He is here for alcohol and cocaine abuse. He denies a prior history of lung disease. Appa rently there is a vague history of chronic bronchial asthma although he doesn't take anything for asthma. He also apparently has history of gastroesophageal reflux disease. He does smoke on a daily basis. He does or at least has a prior history of alcohol abuse, and cocaine abuse. There is no family history of any lung issues. The patient had a chest x-ray which suggested the possibility of right paratracheal and right hilar mass. We'll go ahead and order a computed tomography scan of the chest with contrast. On today's evaluation of 12/19/2020, the patient remains on room air oxygen. Cardiac stress test came back negative. A CAT scan of the chest was completed and it showed some limited groundglass changes in the right upper lobe area. No lung masses. No other abnormalities noted. Noted the patient smokes cigarettes. He did not smoke crack cocaine. He did sniff however some cocaine and he has been undergoing rehabilitation at [facility]. He is currently on Augmentin. Afebrile. No leukocytosis. No other abnormalities noted. Objective - Vital Signs Vital signs: Vital Signs Temp 98.4 F 12/19/20 13:50 Pulse 96 12/19/20 13:50 Resp 18 12/19/20 13:50 BP 116/68 12/19/20 13:50 Pulse Ox 98 12/19/20 13:50 Intake & Output 12/18/20 12/19/20 12/19/20 18:59 06:59 18:59 Intake Total 700 240 Balance 700 240 Weight 77.11 kg Intake: Oral 700 240 Other: # Voids 2 1 - Exam No acute distress, oriented 3. Room air saturation 98%. HEENT examination is grossly unremarkable. Neck supple. Full range of motion. No adenopathy thyromegaly or neck vein distention. Cardiovascular examination reveals regular rhythm rate. S1-S2 normal. No S3 or S4. No discernible murmur noted. Lungs reveal clear breath sounds. Breath sounds are equal bilaterally. No adventitious lung sounds including wheezes rhonchi or crackles. Abdomen soft bowel sounds are heard. No masses or tenderness. Extremities are intact. No cyanosis clubbing or edema. Skin is without rash or lesion. Neurologic examination is brief but nonfocal. - Labs CBC & Chem 7: 12/16/20 21:25 12/16/20 21:25 Assessment and Plan Plan: 1 Right-sided chest discomfort with some limited groundglass changes in the right upper lobe could be related to either infectious causes versus drugs versus tobacco. No hypoxemia. No evidence of any pulmonary embolism. No cardiac decompensation. Cardiac stress test came back negative unit does have some limited enlargement of the right hilar and perihilar lymph nodes. Sarcoidosis cannot be completely ruled out. 2 History of chronic and ongoing tobacco use. 3 History of cocaine abuse. 4 Gastroesophageal reflux disease. 5 History of chronic alcohol abuse. Plan: Patient can be discharged back to [facility] Given a course of Augmentin Given a course of Medrol Dosepak No smoking REHABILITATION Repeat CAT scan of the chest in 3-6 months time. I have discussed this with his mother over the phone. He will be going back to [facility] where he can follow up after he completes his drug rehabilitation.
[2020-12-20] MEDS ORDERED: ASPIRIN 81 MG PO SCH (09:00)
--- NOTE | 2020-12-20 13:29 | P.DS ---
Providers Date of admission: 12/16/20 23:04 Expected date of discharge: 12/19/20 Attending physician: Tae Otto Consults: 12/16/20 23:02 Consult Physician Urgent Consulting Provider: Bella Torrez Consult Reason/Comments: cp Do you want consulting provider notified?: Yes 12/17/20 08:34 Consult Physician Urgent Consulting Provider: Oral Macedo Consult Reason/Comments: cp with small infiltrate or adenopathy of the right pulmonary hilum Do you want consulting provider notified?: Yes Primary care physician: Physician Nonstaff Hospital Course: Final diagnosis -Chest pain ruled out acute coronary syndromes patient had an echocardiogram which showed EF around 45-50% no wall motion abnormalities. Patient chest pain clinically appears to be musculoskeletal -Status post stress test was negative -Alcohol abuse and cocaine abuse currently inpatient drug rehabilitation program -Nicotine abuse -Asthma without any acute exacerbation -Incidental finding of hilar prominence , computed tomography scan showed reactive lymphadenopathy without any evidence of pneumonia -Hyperlipidemia Discharge disposition Patient is being discharged in a stable condition with guarded prognosis to [facility] for continued alcohol and drug rehab. Patient will follow-up with his primary care provider in the outpatient setting upon discharge. Patient is to follow-up with Dr. Remington red along with cardiology Dr. Montero in 1-2 weeks. Total time taken is greater than 35 minutes. Hospital course 12/19/2020 Patient was seen and evaluated by cardiology and underwent a stress test which was negative. Patient will also be following up with pulmonary in the outpatient setting with recommended repeat CT scanning in a few months of the chest. Currently no reports of chest pain, shortness of breath, or palpitations. Patient is afebrile. No reports of nausea or vomiting and patient is tolerating diet. Patient will be discharged back to [facility] today. On exam vital signs are stable. Cardio S1, S2 are muffled. Respiratory system shows diminished breath sounds at the bases with no wheezing or rhonchi noted. Abdomen is soft and nontender. Nervous system shows no focal deficits. Please refer to medication reconciliation sheet for a list of medications. Patient Condition at Discharge: Fair Plan - Discharge Summary Discharge Rx Participant: Yes New Discharge Prescriptions: New Atorvastatin [Lipitor] 10 mg PO HS #30 tab Aspirin 81 mg PO DAILY 30 Days #30 chew Nicotine 14Mg/24Hr Patch [Habitrol] 1 patch TRANSDERM DAILY #20 patch Amoxic-Pot Clav 875-125Mg [Augmentin 875-125] 1 each PO Q12HR 5 Days #10 tab methylPREDNISolone Dose Pack [Medrol Dose Pack] 4 mg PO DIRECTED #21 package Continue traZODone HCL 50 - 150 mg PO HS Chlorpheniramine Maleate [Chlor-Trimeton] 4 mg PO Q4H PRN PRN Reason: Allergy Symptoms Omeprazole 20 mg PO BID Multivitamins, Thera [Multivitamin (formulary)] 1 tab PO DAILY Ibuprofen [Motrin] 600 mg PO Q6H PRN PRN Reason: Pain Calcium/Magnesium 1 tab PO DIRECTED Acetaminophen [Tylenol Arthritis] 650 mg PO Q4H PRN PRN Reason: Fever And/ Or Pain Discontinued cloNIDine HCL [Catapres] 0.1 - 0.3 mg PO DAILY PRN PRN Reason: BP > 160/100 Discharge Medication List Acetaminophen [Tylenol Arthritis] 650 mg PO Q4H PRN 12/16/20 [History] Calcium/Magnesium 1 tab PO DIRECTED 12/16/20 [History] Chlorpheniramine Maleate [Chlor-Trimeton] 4 mg PO Q4H PRN 12/16/20 [History] Ibuprofen [Motrin] 600 mg PO Q6H PRN 12/16/20 [History] Multivitamins, Thera [Multivitamin (formulary)] 1 tab PO DAILY 12/16/20 [History] Omeprazole 20 mg PO BID 12/16/20 [History] traZODone HCL 50 - 150 mg PO HS 12/16/20 [History] Atorvastatin [Lipitor] 10 mg PO HS #30 tab 12/17/20 [Rx] Amoxic-Pot Clav 875-125Mg [Augmentin 875-125] 1 each PO Q12HR 5 Days #10 tab 12/19/20 [Rx] Aspirin 81 mg PO DAILY 30 Days #30 chew 12/19/20 [Rx] Nicotine 14Mg/24Hr Patch [Habitrol] 1 patch TRANSDERM DAILY #20 patch 12/19/20 [Rx] methylPREDNISolone Dose Pack [Medrol Dose Pack] 4 mg PO DIRECTED #21 package 12/19/20 [Rx] Follow up Appointment(s)/Referral(s): Oral Macedo DO [Doctor of Osteopathic Medicine] - 1 Week Nonstaff,Physician [Primary Care Provider] - 1 Week (Beatriz Colin MD [address] [facility] [address] [place] [address]) Vinnie Montero MD [STAFF PHYSICIAN] - 2 Weeks Activity/Diet/Wound Care/Special Instructions: Patient is going to [facility] Activity as tolerated Follow-up with cardiology outpatient in 1-2 weeks Follow-up with pulmonary outpatient in one week Continue medications as prescribed continue heart healthy diet Recommend follow up Cat Scan outpatient in 3 months Discharge Disposition: OTHER INSTITUTION NOT DEFINED
== END 2020-12-19 16:47 | disposition other institution (70) ==
LOC: EC 20:55 → 6NMEDSUR 23:04
PROVIDERS: ADMIT Hospitalist; ATTEND Hospitalist
DX: R07.89 Other chest pain (principal); R07.2 Precordial pain; F14.10 Cocaine abuse, uncomplicated; F10.10 Alcohol abuse, uncomplicated; J45.909 Unspecified asthma, uncomplicated; R91.8 Other nonspecific abnormal finding of lung field; E78.5 Hyperlipidemia, unspecified; R59.1 Generalized enlarged lymph nodes; R53.1 Weakness; R42 Dizziness and giddiness; R20.2 Paresthesia of skin; R61 Generalized hyperhidrosis; R25.1 Tremor, unspecified; R06.4 Hyperventilation; R06.00 Dyspnea, unspecified; F41.9 Anxiety disorder, unspecified; D64.9 Anemia, unspecified; F17.210 Nicotine dependence, cigarettes, uncomplicated; K21.9 Gastro-esophageal reflux disease without esophagitis; E66.9 Obesity, unspecified; Z68.27 Body mass index [BMI] 27.0-27.9, adult; Z20.822 Contact with and (suspected) exposure to COVID-19; Z79.899 Other long term (current) drug therapy
CPT/HCPCS: 96372; 93005 ×3; 96361; 96374; 96375; 99285; 36415; 93306; 93351; 85379; 80061; 80053; 83735; 84484 ×2; 85025; 85610; 85730; 87635; 71046; 71260; G0378 ×4; S4990 ×4; J2060; J1650; J1885; Q9967